=== PATIENT | female | born 1975 | race African-American/Black ===

== ENCOUNTER 2025-04-29 07:57 | Outpatient (CLI) | payer BC, SELFPAY ==
--- NOTE | ~2025-04-29 | MMUS_ITS ---
EXAMINATION: MM diagnostic qi BI w mattie, US breast RT limited INDICATION: 50-year old female; presents for evaluation of right breast lower outer palpable lump. COMPARISON: Baseline TECHNIQUE: Digital breast tomosynthesis CC and MLO views of the BILATERAL breast and True lateral and spot compression of the RIGHT breast were obtained with computer-aided detection to assist in interpretation of the study. A radiopaque skin marker was placed over the area of RIGHT breast palpable lump. FINDINGS: There are scattered areas of fibroglandular density. A circumscribed mass persists in the lower outer right breast at anterior depth correlates to the radiopaque skin marker. In addition there is a mass with partially obscured margins seen in the superior lateral right breast at middle depth. Multiple prominent lymph nodes are seen in the right axilla. There is no dominant mass, area of architectural distortion or suspicious calcifications seen in the left breast. RIGHT BREAST ULTRASOUND FINDINGS: Targeted evaluation of the areas of concern in the right breast is completed. At 8:00 location, 4 cm FN corresponding to the palpable lump area, there is a solid hypoechoic mass with circumscribed margins and prominent internal vascularity that measure 1.6 x 1 x 1.5 cm. This lesion also correlates to the area of mammographic finding. At 9:00 location, 6 cm FN, there is a 2.4 x 1.3 x 2.5 cm anechoic mass that correlates to the additional mammographic finding. This is a simple cyst. Additional multiple smaller cysts scattered within the breast parenchyma. Evaluation of the right axilla demonstrate multiple benign-appearing lymph nodes with predominant fatty magy. These lymph nodes correlate to the mammographic finding. IMPRESSION: 1. Suspicious Right breast mass at 8:00, 4 cm FN location that correlates to palpable lump. Recommend biopsy. 2. Right breast simple cyst at 9:00 location correlates to mammographic finding. No further investigation necessary 3. No mammographic evidence of malignancy within the left breast. RECOMMENDATIONS: Ultrasound-guided core needle biopsy of right breast mass at 8:00 location. BI-RADS 4, SUSPICIOUS Reviewed, dictated and finalized at location B. IMPRESSION: 1. Suspicious Right breast mass at 8:00, 4 cm FN location that correlates to p alpable lump. Recommend biopsy. 2. Right breast simple cyst at 9:00 location correlates to mammographic findin g. No further investigation necessary 3. No mammographic evidence of malignancy within the left breast. RECOMMENDATIONS: Ultrasound-guided core needle biopsy of right breast mass at 8:00 location. BI-RADS 4, SUSPICIOUS
== END 2025-04-29 07:58 | disposition home or self-care (01) ==
PROVIDERS: PCP Nurse Practitioner Family; Visit Provider Nurse Practitioner Family
DX: N64.59 Other signs and symptoms in breast (principal); R92.8 Other abnormal and inconclusive findings on diagnostic imaging of breast
CPT/HCPCS: 76642; 77062; 77066; G0279